=== PATIENT | female | born 1995 | race African-American/Black ===

== ENCOUNTER 2017-01-12 03:20 | Emergency (ER) | payer SELFPAY ==
[~2017-01-12] VITALS: Ht 170.2 cm; Wt 80.0 kg
[2017-01-12 03:22] VITALS: BP 136/79; PULSE 66; RESP 15; TEMP 98.6; O2SAT 100
[2017-01-12] MEDS ORDERED: SODIUM CHLOR 0.9% 1000 ML INJ 1,000 ML IV ONE (04:05)
[2017-01-12] MEDS ORDERED: METOCLOPRAMIDE HCL 10 MG/2 ML VIAL IVP ONE (04:15)
[2017-01-12] MEDS ORDERED: SODIUM CHLORIDE 0.9% FLUSH 10 ML FLUSH IVF PRN (04:15)
[2017-01-12] MEDS ORDERED: diphenhydrAMINE HCL 50 MG/ML VIAL IVP ONE (04:15)
--- NOTE | 2017-01-12 04:35 | PD ---
HPI Chief Complaint: Dizziness Time Seen by Provider: 04:05 Travel History International Travel<30 days: No Contact w/Intl Traveler<30days: No Traveled to known affect area: No History of Present Illness HPI 21-year-old female with history of migraine headaches, presents to the ER today with several days' history of headaches which she currently rates at a 5 out of 10, dizziness, and nausea. She denies any stiff neck, fevers, or any other symptoms. She has been using Tylenol for the headaches. Modifying Factors: None Associated Signs & Symptoms: Headaches, dizziness Risk Factors: History of migraine headaches PFSH Past Medical History Asthma: Yes Tetanus Vaccination: Unknown Influenza Vaccination: No ?: Unknown LMP: 12/10/16 Past Surgical History Surgical History: No Previous Surgery Social History Alcohol Use: No Tobacco Use: No Substance Use: No Allergies-Medications (Allergen,Severity, Reaction): Coded Allergies: shellfish derived (Verified Allergy, Unknown, 01/12/17) Reported Meds & Prescriptions Reported Meds & Active Scripts Active No Active Prescriptions or Reported Medications Review of Systems Except as stated in HPI: all other systems reviewed are Neg Physical Exam Narrative GENERAL: Well-developed young female patient currently in mild distress. Awake and oriented 3. SKIN: Focused skin assessment warm/dry. HEAD: Atraumatic. Normocephalic. EYES: Pupils equal and round. No scleral icterus. No injection or drainage. No photophobia. ENT: No nasal bleeding or discharge. Mucous membranes pink and moist. NECK: Trachea midline. No JVD. Supple. CARDIOVASCULAR: Regular rate and rhythm. No murmur appreciated. RESPIRATORY: No accessory muscle use. Clear to auscultation. Breath sounds equal bilaterally. GASTROINTESTINAL: Abdomen soft, non-tender, nondistended. Hepatic and splenic margins not palpable. MUSCULOSKELETAL: No obvious deformities. No clubbing. No cyanosis. No edema. NEUROLOGICAL: Awake and alert. No obvious cranial nerve deficits. Motor grossly within normal limits. Normal speech. PSYCHIATRIC: Appropriate mood and affect; insight and judgment normal. Data Data Last Documented VS Vital Signs Date Time Temp Pulse Resp B/P (MAP) Pulse Ox O2 Delivery O2 Flow Rate FiO2 01/12/17 05:00 82 15 118/58 (78) 100 Room Air 01/12/17 03:22 98.6 Orders Orders Complete Blood Count With Diff (01/12/17 04:05) Comprehensive Metabolic Panel (01/12/17 04:05) Ecg Monitoring (01/12/17 04:05) Iv Access Insert/Monitor (01/12/17 04:05) Oximetry (01/12/17 04:05) Sodium Chloride 0.9% Flush (Ns Flush) (01/12/17 04:15) Diphenhydramine Inj (Benadryl Inj) (01/12/17 04:15) Metoclopramide Inj (Reglan Inj) (01/12/17 04:15) Sodium Chlor 0.9% 1000 Ml Inj (Ns 1000 M (01/12/17 04:05) Urinalysis - C+S If Indicated (01/12/17 04:05) Ed Urine Pregnancytest Poc (01/12/17 04:05) Urine Culture (01/12/17 04:30) Labs Laboratory Tests Test 01/12/17 04:30 White Blood Count 7.5 TH/MM3 Red Blood Count 4.03 MIL/MM3 Hemoglobin 12.2 GM/DL Hematocrit 35.9 % Mean Corpuscular Volume 89.1 FL Mean Corpuscular Hemoglobin 30.2 PG Mean Corpuscular Hemoglobin Concent 33.9 % Red Cell Distribution Width 13.5 % Platelet Count 250 TH/MM3 Mean Platelet Volume 8.5 FL Neutrophils (%) (Auto) 59.9 % Lymphocytes (%) (Auto) 27.6 % Monocytes (%) (Auto) 8.0 % Eosinophils (%) (Auto) 3.8 % Basophils (%) (Auto) 0.7 % Neutrophils # (Auto) 4.5 TH/MM3 Lymphocytes # (Auto) 2.1 TH/MM3 Monocytes # (Auto) 0.6 TH/MM3 Eosinophils # (Auto) 0.3 TH/MM3 Basophils # (Auto) 0.1 TH/MM3 CBC Comment DIFF FINAL Differential Comment Urine Color YELLOW Urine Turbidity CLEAR Urine pH 6.5 Urine Specific [place] 1.023 Urine Protein TRACE mg/dL Urine Glucose (UA) NEG mg/dL Urine Ketones NEG mg/dL Urine Occult Blood NEG Urine Nitrite NEG Urine Bilirubin NEG Urine Urobilinogen LESS THAN 2.0 MG/DL Urine Leukocyte Esterase TRACE Urine RBC 4 /hpf Urine WBC 10 /hpf Urine Squamous Epithelial Cells 2 /hpf Urine Bacteria RARE /hpf Microscopic Urinalysis Comment CULTURE INDICATED Blood Urea Nitrogen 9 MG/DL Creatinine 0.81 MG/DL Random Glucose 84 MG/DL Total Protein 7.1 GM/DL Albumin 3.5 GM/DL Calcium Level 8.4 MG/DL Alkaline Phosphatase 57 U/L Aspartate Amino Transf (AST/SGOT) 12 U/L Alanine Aminotransferase (ALT/SGPT) 16 U/L Total Bilirubin 0.2 MG/DL Sodium Level 139 MEQ/L Potassium Level 3.8 MEQ/L Chloride Level 106 MEQ/L Carbon Dioxide Level 26.0 MEQ/L Anion Gap 7 MEQ/L Estimat Glomerular Filtration Rate 108 ML/MIN MDM Medical Decision Making Medical Screen Exam Complete: Yes Emergency Medical Condition: Yes Medical Record Reviewed: Yes Interpretation(s) Laboratory Tests Test 01/12/17 04:30 Urine Leukocyte Esterase TRACE (NEG) Urine RBC 4 /hpf (0-3) Urine WBC 10 /hpf (0-5) Urine Bacteria RARE /hpf (NONE) Calcium Level 8.4 MG/DL (8.5-10.1) Aspartate Amino Transf (AST/SGOT) 12 U/L (15-37) Differential Diagnosis Headaches, dizziness: migraine headaches versus metabolic issues versus dehydration Narrative Course Vital signs are stable in the ER. Patient was given IV fluids, Reglan, and Benadryl. Lab work returns showing significant UTI. On reevaluation at 5:40 AM , she is feeling improved and her headache is subsiding. She has no meningeal signs and I do not suspect underlying meningitis or other acute processes at this point. My plan would be to treat her for her headaches and treat her UTI. We will discharge her with follow-up to primary care physician. Return for any new issues as needed. The plan has been discussed with her and she states understanding. Diagnosis Primary Impression: Headache Additional Impression: UTI (urinary tract infection) Med/Other Pt SpecificInfo: Prescription(s) given Scripts Promethazine (Phenergan) 25 Mg Tablet 25 MG PO Q6H Y for NAUSEA OR VOMITING, #7 TAB 0 Refills Prov: Richard Dillard MD 01/12/17 Nitrofurantoin Monohydrate Macrocrystals (Macrobid) 100 Mg Cap 100 MG PO BID for Infection for 7 Days, CAP 0 Refills Prov: Richard Dillard MD 01/12/17 Disposition: 01 DISCHARGE HOME Condition: Stable Richard Dillard MD Jan 12, 2017 04:35
[2017-01-12 04:44] LABS: AUTOMATED NEUTROPHIL # 4.5 TH/MM3 (1.8-7.7); BASOPHIL # 0.1 TH/MM3 (0-0.2); BASOPHIL % 0.7 % (0.0-2.0); EOSINOPHIL # 0.3 TH/MM3 (0-0.4); EOSINOPHIL % 3.8 % (0.0-4.0); HEMATOCRIT 35.9 % (35.0-46.0); HEMO FLAGS DIFF FINAL; LYMPH % 27.6 % (9.0-44.0); LYMPHOCYTE # 2.1 TH/MM3 (1.0-4.8); MEAN CELL VOLUME 89.1 FL (80.0-100.0); MEAN CORPUSCULAR HEMOGLOBIN 30.2 PG (27.0-34.0); MEAN CORPUSCULAR HGB CONC 33.9 % (32.0-36.0); NEUT % 59.9 % (16.0-70.0); PLATELET COUNT 250 TH/MM3 (150-450); RED BLOOD COUNT 4.03 MIL/MM3 (4.00-5.30); RED CELL DISTRIBUTION WIDTH 13.5 % (11.6-17.2); WHITE BLOOD COUNT 7.5 TH/MM3 (4.0-11.0)
[2017-01-12 04:47] LABS: BACTERIA, URINE RARE /hpf; BLOOD, URINE NEG (NEG); COMMENT (UR) CULTURE INDICATED; CULTURE IF INDICATED CULTURE INDICATED; GLUCOSE,URINE NEG (NEG); KETONE, URINE NEG (NEG); NITRITE,URINE NEG (NEG); PH, URINE 6.5 (5.0-8.5); SQUAMOUS EPITHELIAL CELL URINE 2 /hpf (0-5); URINE COLOR YELLOW (YELLW/STRAW)
[2017-01-12 04:59] LABS: ALT (GPT) 16 U/L (10-53); ANION GAP 7 MEQ/L (5-15); AST (GOT) 12 U/L (15-37); BLOOD UREA NITROGEN 9 MG/DL (7-18); CHLORIDE 106 MEQ/L (98-107); GLOMERULAR FILTRATION RATE 108 ML/MIN (>89); POTASSIUM 3.8 MEQ/L (3.5-5.1); SODIUM (NA) 139 MEQ/L (136-145)
[2017-01-12 05:00] VITALS: BP 118/58; PULSE 82; RESP 15; O2SAT 100
[2017-01-12 05:02] LABS: ALKALINE PHOSPHATASE 57 U/L (45-117); TOTAL BILIRUBIN ADULT 0.2 MG/DL (0.2-1.0)
[2017-01-12] MEDS ORDERED: MACR100C2 PO (05:46)
[2017-01-12] MEDS ORDERED: PROM25TA10 PO (05:46)
[2017-01-12 05:50] VITALS: BP 110/72
== END 2017-01-12 06:00 | disposition home or self-care (01) ==
LOC: NEPC 03:20
DX: R51 Headache (principal); N39.0 Urinary tract infection, site not specified; J45.909 Unspecified asthma, uncomplicated
CPT/HCPCS: 80053; 81001; 84703; 85025; 87086; 96361; 96374; 96375; 99284; J1200; J2765; J7030

== ENCOUNTER 2017-01-23 18:31 | Emergency (ER) | payer SELFPAY ==
[~2017-01-23] VITALS: Ht 170.2 cm; Wt 79.0 kg
[~2017-01-23 18:31] MED LIST: MACR100C2 PO; PROM25TA10 PO
[2017-01-23 18:32] VITALS: BP 119/64; PULSE 83; RESP 17; TEMP 98.5; O2SAT 99
== END 2017-01-23 20:15 | disposition left against medical advice (07) ==
LOC: NED 18:31
DX: R10.9 Unspecified abdominal pain (principal); Z53.21 Procedure and treatment not carried out due to patient leaving prior to being seen by health care provider
CPT/HCPCS: 99281

== ENCOUNTER 2017-03-20 11:27 | Emergency (ER) | payer BC ==
[~2017-03-20] VITALS: Ht 167.6 cm; Wt 80.0 kg
[2017-03-20 11:32] VITALS: BP 132/71; PULSE 71; RESP 18; TEMP 98.8; O2SAT 98
--- NOTE | 2017-03-20 12:31 | PD ---
HPI . Sore throat and headache 1 day Chief Complaint: ENT Complaint Time Seen by Provider: 12:13 Travel History International Travel<30 days: No Contact w/Intl Traveler<30days: No Traveled to known affect area: No History of Present Illness HPI 21-year-old female presents to emergency department for evaluation of sore throat and headache 1 day. Patient denies any abdominal pain, nausea, vomiting , diarrhea. Patient denies any fevers, chills, malaise. Patient denies any ear pain. Patient denies any major medical history he doesn't take any daily medication. PFSH Past Medical History Asthma: Yes Respiratory: Yes (ASTHMA) ?: Not LMP: LAST MONTH Social History Alcohol Use: No Tobacco Use: No Substance Use: No Allergies-Medications (Allergen,Severity, Reaction): Coded Allergies: shellfish derived (Verified Allergy, Unknown, 03/20/17) Reported Meds & Prescriptions Reported Meds & Active Scripts Active Phenergan (Promethazine HCl) 25 Mg Tablet 25 Mg PO Q6H PRN Macrobid (Nitrofurantoin Monoh/Nitrofur Macro) 100 Mg Cap 100 Mg PO BID 7 Days Review of Systems Except as stated in HPI: all other systems reviewed are Neg Physical Exam Narrative GENERAL: Well-nourished, well-developed 21-year-old female patient in no acute distress. Nontoxic appearing.. SKIN: Focused skin assessment warm/dry. HEAD: Normocephalic. Atraumatic. EYES: PERLLA demonstrated bilaterally. No scleral icterus. No injection or drainage. NEUROLOGICAL: Awake and alert. Cranial nerves II through XII intact. Motor and sensory grossly within normal limits. Five out of 5 muscle strength in all muscle groups. Normal speech. EARS: Bilateral pinnae and external canals appear within normal limits. Bilateral tympanic membranes without erythema, dullness or perforation. THROAT: Mild pharyngeal injection and tonsillar hypertrophy, no exudates. Airway is patent. NECK: Supple, trachea midline. No JVD or lymphadenopathy. CARDIOVASCULAR: Regular rate and rhythm without murmurs, gallops, or rubs. RESPIRATORY: Breath sounds equal bilaterally. No accessory muscle use. No wheezing, rhonchi, crackles noted. GASTROINTESTINAL: Abdomen soft, non-tender, nondistended. Data Data Last Documented VS Vital Signs Date Time Temp Pulse Resp B/P (MAP) Pulse Ox O2 Delivery O2 Flow Rate FiO2 11/2/17 11:32 98.8 71 18 132/71 (91) 98 [facility] Medical Decision Making Medical Screen Exam Complete: Yes Emergency Medical Condition: Yes Differential Diagnosis Differential diagnosis includes but not limited to upper respiratory infection, viral infection, pharyngitis Narrative Course 21-year-old well-appearing well-nourished well-developed female presents emergency department for evaluation of sore throat and headache 1 day. Throat showed bilateral tonsillar hypertrophy with mild erythema but is otherwise unremarkable. Patient denies any cough, chills, fever, nausea, vomiting, chest pain. Patient will be given instructions on supportive care and discharged home with instructions to follow up with her primary care or return to the emergency department as needed. Diagnosis Primary Impression: Pharyngitis Qualified Codes: J02.9 - Acute pharyngitis, unspecified Referrals: Primary Care Physician Patient Instructions: General Instructions, Pharyngitis (DC) Additional Instructions: Please return to emergency department if your symptoms return or worsen. Follow up with your primary care provider. Take ibuprofen as needed for pain or fever. Supportive care, stay hydrated, get enough rest, diet as tolerated. Disposition: 01 DISCHARGE HOME Condition: Stable Adrienne Mckee JUDIE Mar 20, 2017 12:31
[2017-03-21] MEDS ORDERED: TYLE325T PO (02:19)
== END 2017-03-20 12:41 | disposition home or self-care (01) ==
LOC: NEPK 11:27
DX: J02.9 Acute pharyngitis, unspecified (principal); R51 Headache; Z87.09 Personal history of other diseases of the respiratory system
CPT/HCPCS: 99282

== ENCOUNTER 2017-03-21 00:10 | Emergency (ER) | payer BC ==
[~2017-03-21] VITALS: Ht 167.6 cm; Wt 80.0 kg
[2017-03-21 00:12] VITALS: BP 132/61; PULSE 81; RESP 16; TEMP 98.1; O2SAT 100
--- NOTE | 2017-03-21 00:49 | PD ---
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 States last menstrual period was end of january. Denies any fever, chest pain, sob, n/v, vaginal discharge or bleeding, urinary symptoms. Pt took ibuprofen. PFSH Past Medical History Asthma: Yes Respiratory: Yes (ASTHMA) ?: Unknown LMP: 02/05/17 Past Surgical History Surgical History: No Previous Surgery Social History Alcohol Use: No Tobacco Use: No Substance Use: No Allergies-Medications (Allergen,Severity, Reaction): Coded Allergies: shellfish derived (Verified Allergy, Unknown, 03/21/17) Reported Meds & Prescriptions Reported Meds & Active Scripts Active No Active Prescriptions or Reported Medications Review of Systems Except as stated in HPI: all other systems reviewed are Neg Physical Exam Narrative GENERAL: 21yo F not in distress. SKIN: Focused skin assessment warm/dry. HEAD: Atraumatic. Normocephalic. EYES: Pupils equal and round. No scleral icterus. No injection or drainage. ENT: No nasal bleeding or discharge. Mucous membranes pink and moist. NECK: Trachea midline. No JVD. CARDIOVASCULAR: Regular rate and rhythm. No murmur appreciated. RESPIRATORY: No accessory muscle use. Clear to auscultation. Breath sounds equal bilaterally. GASTROINTESTINAL: Abdomen soft, non-tender, nondistended. No rebound tenderness or guarding. PELVIC: Small amount of white vaginal discharge. No CMT or adnexal tenderness bilaterally. MUSCULOSKELETAL: No obvious deformities. No clubbing. No cyanosis. No edema. NEUROLOGICAL: Awake and alert. No obvious cranial nerve deficits. Motor grossly within normal limits. Normal speech. PSYCHIATRIC: Appropriate mood and affect; insight and judgment normal. Data Data Last Documented VS Vital Signs Date Time Temp Pulse Resp B/P (MAP) Pulse Ox O2 Delivery O2 Flow Rate FiO2 03/21/17 00:12 98.1 81 16 132/61 (84) 100 Room Air Orders Orders Ed Urine Pregnancytest Poc (03/21/17 00:46) Urinalysis - C+S If Indicated (03/21/17 00:46) Gc And Chlamydia Pcr (03/21/17 00:46) Wet Prep Profile (03/21/17 00:46) Acetaminophen (Tylenol) (03/21/17 01:00) Labs Laboratory Tests Test 03/21/17 01:40 03/21/17 01:45 Clue Cells (Wet Prep) NONE SEEN Vaginal Trichomonas (Wet Prep) NONE SEEN Vaginal Yeast (Wet Prep) NONE SEEN Urine Color YELLOW Urine Turbidity CLEAR Urine pH 6.0 Urine Specific [place] 1.030 Urine Protein TRACE mg/dL Urine Glucose (UA) NEG mg/dL Urine Ketones NEG mg/dL Urine Occult Blood SMALL Urine Nitrite NEG Urine Bilirubin NEG Urine Urobilinogen LESS THAN 2.0 MG/DL Urine Leukocyte Esterase NEG Urine RBC 5 /hpf Urine WBC 1 /hpf Urine Squamous Epithelial Cells 3 /hpf Urine Mucus FEW /lpf Microscopic Urinalysis Comment CULT NOT INDICATED MDM Medical Decision Making Medical Screen Exam Complete: Yes Emergency Medical Condition: Yes Differential Diagnosis UTI vs. bacterial vaginosis vs. candidiasis vs. Narrative Course 21yo F here with intermittent cramps for weeks. Pt has no abdominal tenderness on exam. She is very well appearing. Vital signs normal. Urine negative. UA showed WBC 1 and RBC 5. Culture not indicated. Wet prep negative. Pt given acetaminophen. Reevaluated at bedside and said there is no pain now. No other complaints. Return precautions given. Diagnosis Primary Impression: Abdominal cramping Patient Instructions: General Instructions Departure Forms: Tests/Procedures Additional Instructions: Please follow up with your primary care physician in 3-7 days. Return to the ED if symptoms worsen. Med/Other Pt SpecificInfo: Prescription(s) given Scripts Acetaminophen (Tylenol) 325 Mg Tab 650 MG PO Q6H Y for PAIN SCALE 1 TO 4, #20 TAB 0 Refills Prov: Sary Perez DO 03/21/17 Disposition: 01 DISCHARGE HOME Condition: Stable Sary Perez DO Mar 21, 2017 00:49
[2017-03-21] MEDS ORDERED: ACETAMINOPHEN 325 MG TAB PO ONE (01:00)
[2017-03-21 01:50] LABS: BLOOD, URINE SMALL (NEG); COMMENT (UR) CULT NOT INDICATED; CULTURE IF INDICATED CULT NOT INDICATED; GLUCOSE,URINE NEG (NEG); KETONE, URINE NEG (NEG); MUCUS URINE FEW /lpf (OCC); NITRITE,URINE NEG (NEG); SQUAMOUS EPITHELIAL CELL URINE 3 /hpf (0-5); URINE COLOR YELLOW (YELLW/STRAW)
[2017-03-21] MEDS ORDERED: TYLE325T PO (02:19)
[2017-03-21 03:40] LABS: CHLAMYDIA PCR NOT DETECTED (NOT DETECT); NEISSERIA PCR NOT DETECTED (NOT DETECT)
== END 2017-03-21 02:35 | disposition home or self-care (01) ==
LOC: NEPE 00:10
DX: R10.9 Unspecified abdominal pain (principal); N89.8 Other specified noninflammatory disorders of vagina; J45.909 Unspecified asthma, uncomplicated
CPT/HCPCS: 81001; 84703; 87210; 87491; 87591; 99284

== ENCOUNTER 2017-05-29 13:47 | Emergency (ER) | payer BC, OTHER ==
[~2017-05-29] VITALS: Ht 167.6 cm; Wt 76.0 kg
[~2017-05-29 13:47] MED LIST changes: -MACR100C2 PO; -PROM25TA10 PO; +TYLE325T PO
[2017-05-29 13:58] VITALS: BP 144/56; PULSE 84; RESP 16; TEMP 99; O2SAT 100
== END 2017-05-29 16:15 | disposition left against medical advice (07) ==
LOC: PHED 13:47
DX: R11.10 Vomiting, unspecified (principal)
CPT/HCPCS: 99281